=== PATIENT | female | born 1940 | race Caucasian/White ===

== ENCOUNTER 2017-05-25 20:36 | Observation (INO) | payer OTHER ==
[~2017-05-25] VITALS: Ht 160 cm; Wt 65.8 kg
[~2017-05-25 20:36] MED LIST: ADVAIR 250/501 DISK IH; ADVAIR 500/501 DISK IH; BACTROBAN OINTM22 GM TP; CEPHALEXIN500 MG PO; COMBIVENT RESPIM4 GM IH; DORZOLAMIDE HCL10 ML BOTH EYES; ENALAPRIL MALEA20 MG PO; ERGOCALCIF50000 UNIT PO; FUROSEMIDE20 MG PO; GABAPENTIN300 MG PO; LATANOPROST2.5 ML BOTH EYES; LOVASTATIN20 MG PO; MONTELUKAST SOD10 MG PO; PREDNISONE50 MG PO; PROAIR HFA8.5 GM IH; RANITIDINE HCL150 MG PO; SPIRIVA RESPIMAT4 GM IH; TRAMADOL HCL50 MG PO; VERAPAMIL HCL120 M2 PO; VITAMIN D2000 UNIT PO
[2017-05-25 21:25] LABS: BASOPHIL (%) 0.7 % (0-1); BASOPHIL COUNT 0.1 K/uL (0-0.1); EOSINOPHIL (%) 4.2 % (0-5); EOSINOPHIL COUNT 0.4 K/uL (0-0.3); HEMATOCRIT 30.1 % (36.0-46.0); HEMOGLOBIN 9.5 G/DL (11.9-15.5); IMMATURE GRANULOCYTE (%) 0.4 % (0.0-0.7); LYMPHOCYTE (%) 11.5 % (15-42); LYMPHOCYTE COUNT 1.2 K/uL (1.0-2.8); MCH 32.2 PG (29.0-34.0); MCHC 31.6 G/DL (30.0-36.0); MONOCYTE (%) 7.8 % (3-12); MONOCYTE COUNT 0.8 K/uL (0-0.8); NEUTROPHIL (%) 75.4 % (45-76); NEUTROPHIL COUNT 7.8 K/uL (1.8-6.4); PLATELET COUNT 240 K/uL (156-360); RBC DIS.WIDTH-CV 11.5 % (11.8-14.6); RBC DIS.WIDTH-SD 42.7 % (39-53); RED BLOOD COUNT 2.95 M/uL (3.80-5.20); WHITE BLOOD COUNT 10.3 K/uL (4.1-10.2)
[2017-05-25 21:40] LABS: ALBUMIN 4.1 g/dL (3.2-4.8)
[2017-05-25 21:41] LABS: CHLORIDE 108 mEq/L (99-109); POTASSIUM 4.1 mEq/L (3.7-5.4); SODIUM 140 mEq/L (136-147)
[2017-05-25 21:43] LABS: GLUCOSE 115 mg/dL (70-99); TOTAL PROTEIN 7.2 g/dL (6.4-8.3)
[2017-05-25 21:45] LABS: TOTAL BILIRUBIN 0.4 mg/dL (0.0-1.0)
[2017-05-25 21:46] LABS: ALKALINE PHOSPHATASE 101 IU/L (3-129); TROP-I INTERPRETATION NEGATIVE; TROPONIN-I 0.03 ng/mL (0.0-0.30)
[2017-05-25 21:47] LABS: CREATININE 2.7 mg/dL (0.6-1.3); GFR ESTIMATE (CALCULATED) 18 mL/min/
[2017-05-25 21:48] LABS: AST (GOT) 23 IU/L (2-34); UREA NITROGEN (BUN) 35 mg/dL (9-23)
[2017-05-25 21:49] LABS: ALT (GPT) 16 IU/L (3-49)
[2017-05-26] MEDS ORDERED: COMBIVENT RESPIM4 GM IH (00:43)
[2017-05-26] MEDS ORDERED: ALPHAGAN P100 DROP/1 BOTH EYES (00:44)
[2017-05-26] MEDS ORDERED: ONDANSETRON HCL4 MG PO (00:48)
[2017-05-26] MEDS ORDERED: AZITHROMYCIN500 M1 PO (00:49)
[2017-05-26 03:28] VITALS: BP 177/75
[2017-05-26 07:45] VITALS: BP 141/73
[2017-05-26 11:50] VITALS: BP 123/60
[2017-05-26 12:02] LABS: INTER. NORMALIZED RATIO 1.1
[2017-05-26 12:06] LABS: PTT 29.6 SEC (25-37)
[2017-05-26 15:22] VITALS: BP 162/72
[2017-05-26 19:00] VITALS: BP 132/60
[2017-05-27 03:45] VITALS: BP 118/57
[2017-05-27 05:40] LABS: BASOPHIL (%) 0.5 % (0-1); EOSINOPHIL (%) 4.7 % (0-5); EOSINOPHIL COUNT 0.4 K/uL (0-0.3); HEMOGLOBIN 8.6 G/DL (11.9-15.5); IMMATURE GRANULOCYTE (%) 0.4 % (0.0-0.7); LYMPHOCYTE (%) 10.6 % (15-42); LYMPHOCYTE COUNT 0.8 K/uL (1.0-2.8); MCH 32.7 PG (29.0-34.0); MCHC 31.9 G/DL (30.0-36.0); MCV 102.7 FL (83-99); MONOCYTE (%) 9.2 % (3-12); MONOCYTE COUNT 0.7 K/uL (0-0.8); NEUTROPHIL (%) 74.6 % (45-76); NEUTROPHIL COUNT 5.9 K/uL (1.8-6.4); PLATELET COUNT 199 K/uL (156-360); RBC DIS.WIDTH-CV 11.3 % (11.8-14.6); RBC DIS.WIDTH-SD 42.3 % (39-53); RED BLOOD COUNT 2.63 M/uL (3.80-5.20); WHITE BLOOD COUNT 7.8 K/uL (4.1-10.2)
[2017-05-27 07:42] LABS: CHLORIDE 105 MEQ/L (99-109); CREATININE 2.4 MG/DL (0.6-1.3); GFR ESTIMATE (CALCULATED) 21 mL/min/; GLUCOSE 106 mg/dL (70-99); POTASSIUM 4.4 MEQ/L (3.7-5.4); SODIUM 139 MEQ/L (136-147); UREA NITROGEN (BUN) 34 mg/dL (9-23)
[2017-05-27 08:00] VITALS: BP 148/65
[2017-05-27 11:40] VITALS: BP 149/74
[2017-05-27] MEDS ORDERED: CLOPIDOGREL75 MG PO (13:00)
[2017-05-27] MEDS ORDERED: ASPIR-LOW81 MG PO (13:01)
[2017-05-27 15:30] VITALS: BP 141/87
== END 2017-05-27 19:32 | disposition home or self-care (01) ==
LOC: EME 20:36 → EDOF 05-26 01:10 → 5WEST 05-26 01:10 → ENRESERV 05-26 01:15 → 5WEST 05-26 03:07
PROVIDERS: Emergency Medicine; Hospitalist
DX: I70.213 Atherosclerosis of native arteries of extremities with intermittent claudication, bilateral legs (principal); I70.92 Chronic total occlusion of artery of the extremities; L03.115 Cellulitis of right lower limb; M79.89 Other specified soft tissue disorders; I12.9 Hypertensive chronic kidney disease with stage 1 through stage 4 chronic kidney disease, or unspecified chronic kidney disease; N18.3 Chronic kidney disease, stage 3 (moderate); E78.5 Hyperlipidemia, unspecified; J45.909 Unspecified asthma, uncomplicated; R94.31 Abnormal electrocardiogram [ECG] [EKG]; D64.9 Anemia, unspecified; Z83.3 Family history of diabetes mellitus; Z80.0 Family history of malignant neoplasm of digestive organs; Z88.5 Allergy status to narcotic agent; Z88.1 Allergy status to other antibiotic agents
CPT/HCPCS: 80048; 80053; 83605; 84484; 85025; 85610; 85730; 90686; 93005; 93926; 93970; 94640; 94640 76; 99202; 99281; 99285; G0378; J0295; J0690; J0692; J1644; J3370; J7050

== ENCOUNTER 2017-11-06 14:27 | Inpatient (IN) | payer OTHER ==
[~2017-11-06] VITALS: Ht 157.5 cm; Wt 64.0 kg
[~2017-11-06 14:27] MED LIST changes: +ALPHAGAN P100 DROP/1 BOTH EYES; +ASPIR-LOW81 MG PO; +AZITHROMYCIN500 M1 PO; +CLOPIDOGREL75 MG PO; +ONDANSETRON HCL4 MG PO; -VITAMIN D2000 UNIT PO; +VITAMIN D31000 UNIT PO
[2017-11-06 16:30] LABS: HEMATOCRIT 28.3 % (36.0-46.0); HEMOGLOBIN 9.1 G/DL (11.9-15.5); MCH 32.7 PG (29.0-34.0); MCHC 32.2 G/DL (30.0-36.0); MCV 101.8 FL (83-99); PLATELET COUNT 239 K/uL (156-360); RBC DIS.WIDTH-CV 11.5 % (11.8-14.6); RBC DIS.WIDTH-SD 42.5 % (39-53); RED BLOOD COUNT 2.78 M/uL (3.80-5.20); WHITE BLOOD COUNT 11.3 K/uL (4.1-10.2)
[2017-11-06 16:39] LABS: CHLORIDE 109 mEq/L (99-109); POTASSIUM 4.4 mEq/L (3.7-5.4); SODIUM 141 mEq/L (136-147)
[2017-11-06 16:41] LABS: GLUCOSE 93 mg/dL (70-99)
[2017-11-06 16:45] LABS: CREATININE 2.8 mg/dL (0.6-1.3); GFR ESTIMATE (CALCULATED) 18 mL/min/
[2017-11-06 16:46] LABS: UREA NITROGEN (BUN) 33 mg/dL (9-23)
[2017-11-06 16:51] LABS: TROP-I INTERPRETATION NEGATIVE; TROPONIN-I 0.09 ng/mL (0.0-0.30)
[2017-11-06] MEDS ORDERED: PLAVIX75 MG PO (18:18)
[2017-11-06] MEDS ORDERED: BREO ELLIPTA I1 EACH IH (18:25)
[2017-11-06] MEDS ORDERED: LANOLIN HYDROUS28 GM TP (18:27)
[2017-11-06] MEDS ORDERED: CALCITRIOL0.25 MCG PO (18:28)
[2017-11-06 20:16] VITALS: BP 161/86
[2017-11-06 21:08] LABS: TROP-I INTERPRETATION NEGATIVE; TROPONIN-I 0.19 ng/mL (0.0-0.30)
[2017-11-06 22:42] LABS: INTER. NORMALIZED RATIO 1.2
[2017-11-06 22:44] LABS: PTT 26.3 SEC (25-37)
[2017-11-06 22:54] LABS: TROP-I INTERPRETATION NEGATIVE; TROPONIN-I 0.16 ng/mL (0.0-0.30)
[2017-11-07 00:04] VITALS: BP 119/53
[2017-11-07 00:33] LABS: APPEARANCE CLEAR ((CLEAR)); BILIRUBIN NEGATIVE; BLOOD NEGATIVE; COLOR STRAW ((YELLOW)); GLUCOSE (STRIP) NEGATIVE; KETONES NEGATIVE; LEUKOCYTES TRACE; NITRITE NEGATIVE; PROTEIN (STRIP) NEGATIVE; SPECIFIC GRAVITY 1.004 (1.000-1.030); UROBILINOGEN 0.2 MG/DL (0.2-1.0)
[2017-11-07 00:38] LABS: BACTERIA RARE /HPF; EPITHELIAL CELLS RARE /HPF; MUCUS TRACE /LPF; WHITE BLOOD CELLS 0-5 /HPF (0-5)
[2017-11-07 03:43] VITALS: BP 135/62
[2017-11-07 07:00] VITALS: BP 140/60
[2017-11-07 07:10] LABS: HEMATOCRIT 27.6 % (36.0-46.0); HEMOGLOBIN 8.8 G/DL (11.9-15.5); MCHC 31.9 G/DL (30.0-36.0); MCV 100.4 FL (83-99); PLATELET COUNT 246 K/uL (156-360); RBC DIS.WIDTH-CV 11.6 % (11.8-14.6); RBC DIS.WIDTH-SD 41.9 % (39-53); RED BLOOD COUNT 2.75 M/uL (3.80-5.20); WHITE BLOOD COUNT 6.3 K/uL (4.1-10.2)
[2017-11-07 07:28] LABS: TROP-I INTERPRETATION NEGATIVE; TROPONIN-I 0.17 ng/mL (0.0-0.30)
[2017-11-07 07:29] LABS: INTER. NORMALIZED RATIO 1.2
[2017-11-07 07:33] LABS: PTT 99.8 SEC (25-37)
[2017-11-07 10:16] LABS: CHLORIDE 110 MEQ/L (99-109); CREATININE 2.8 MG/DL (0.6-1.3); GFR ESTIMATE (CALCULATED) 18 mL/min/; GLUCOSE 125 mg/dL (70-99); POTASSIUM 4.7 MEQ/L (3.7-5.4); SODIUM 143 MEQ/L (136-147); UREA NITROGEN (BUN) 34 mg/dL (9-23)
[2017-11-07 14:00] VITALS: BP 162/69
[2017-11-07 19:03] VITALS: BP 136/63
[2017-11-08 00:43] VITALS: BP 105/49
[2017-11-08 04:02] VITALS: BP 118/59
[2017-11-08 07:15] LABS: CHLORIDE 101 MEQ/L (99-109); GFR ESTIMATE (CALCULATED) 16 mL/min/; GLUCOSE 113 mg/dL (70-99); POTASSIUM 4.3 MEQ/L (3.7-5.4); UREA NITROGEN (BUN) 47 mg/dL (9-23)
[2017-11-08 07:16] LABS: SODIUM 133 MEQ/L (136-147)
[2017-11-08 09:10] VITALS: BP 130/63
[2017-11-08 16:50] LABS: INTER. NORMALIZED RATIO 1.1
[2017-11-08 16:53] LABS: PTT 34.5 SEC (25-37)
[2017-11-08 21:00] VITALS: BP 189/86
[2017-11-08 22:30] VITALS: BP 130/60
[2017-11-08 23:35] LABS: INTER. NORMALIZED RATIO 1.1
[2017-11-09] VITALS (10 sets, daily range): BP systolic 125–166; BP diastolic 55–73
[2017-11-09 01:15] LABS: PTT 74.5 SEC (25-37)
[2017-11-09 06:25] LABS: HEMATOCRIT 23.6 % (36.0-46.0); HEMOGLOBIN 7.5 G/DL (11.9-15.5); MCH 32.3 PG (29.0-34.0); MCHC 31.8 G/DL (30.0-36.0); MCV 101.7 FL (83-99); PLATELET COUNT 213 K/uL (156-360); RBC DIS.WIDTH-CV 11.8 % (11.8-14.6); RBC DIS.WIDTH-SD 43.1 % (39-53); RED BLOOD COUNT 2.32 M/uL (3.80-5.20); WHITE BLOOD COUNT 9.9 K/uL (4.1-10.2)
[2017-11-09 07:32] LABS: CHLORIDE 110 MEQ/L (99-109); CREATININE 2.6 MG/DL (0.6-1.3); GFR ESTIMATE (CALCULATED) 19 mL/min/; GLUCOSE 105 mg/dL (70-99); POTASSIUM 4.3 MEQ/L (3.7-5.4); SODIUM 139 MEQ/L (136-147); UREA NITROGEN (BUN) 52 mg/dL (9-23)
== END 2017-11-09 22:43 | disposition short-term general hospital (02) | DRG 287 ==
LOC: EME 14:27 → EDOF 19:07 → 4SOUTH 19:07 → ENRESERV 19:09 → 4SOUTH 20:01
PROVIDERS: Family Medicine; Hospitalist; Internal Medicine; Internal Medicine Cardiovascular Disease
PROC: 4A023N7 Measurement of Cardiac Sampling and Pressure, Left Heart, Percutaneous Approach (ICD-10-PCS; principal; 2017-11-08)
PROC: B2111ZZ Fluoroscopy of Multiple Coronary Arteries using Low Osmolar Contrast (ICD-10-PCS; principal; 2017-11-08)
PROC: 30233N1 Transfusion of Nonautologous Red Blood Cells into Peripheral Vein, Percutaneous Approach (ICD-10-PCS; 2017-11-09)
DX: I25.110 Atherosclerotic heart disease of native coronary artery with unstable angina pectoris (principal); I12.9 Hypertensive chronic kidney disease with stage 1 through stage 4 chronic kidney disease, or unspecified chronic kidney disease; J44.9 Chronic obstructive pulmonary disease, unspecified; N18.4 Chronic kidney disease, stage 4 (severe); E87.2 Acidosis; D63.8 Anemia in other chronic diseases classified elsewhere; E78.5 Hyperlipidemia, unspecified; K21.9 Gastro-esophageal reflux disease without esophagitis; H40.9 Unspecified glaucoma; I73.9 Peripheral vascular disease, unspecified; Z87.891 Personal history of nicotine dependence; Z79.01 Long term (current) use of anticoagulants; Z83.3 Family history of diabetes mellitus
CPT/HCPCS: 70450; 71046; 78582; 80048; 81003; 84484; 85027; 85347; 85379; 85610; 85730; 86850; 86900; 86901; 86920; 93005; 93306; 93970; 94640; 94640 76; 99202; 99281; 99284; A9540; A9567; C1769; C1887; G0378; J1644; J2250; J3010; J7040; J7512; P9016